=== PATIENT | female | born 1990 | race Two or more races ===

== ENCOUNTER 2025-02-05 09:22 | Day surgery (SDC) | payer OTHER ==
[2025-01-24 09:15] LABS: PH,URINE 5.5 (5.0-8.0); URINE APPEARANCE Clear; URINE BILIRRUBIN Negative (NEGATIVE); URINE BLOOD Negative; URINE COLOR Yellow; URINE GLUCOSE Negative (NEGATIVE); URINE KETONE Negative (NEGATIVE); URINE LEUKOCYTE Negative; URINE NITRATE Negative; URINE PROTEIN Negative (NEGATIVE); URINE UROBILINOGEN 0.2 E.U./dl
[2025-01-24 09:16] VITALS: BP 96/61
[2025-01-24 09:19] LABS: URINE EPITHELIAL CELLS 6.9 uL (0.0-38.8); URINE WBC 10.4 uL (0.0-23.2)
[2025-01-24 09:20] LABS: HEMATOCRIT 36.5 % (36.0-45.00); HEMOGLOBIN 12.7 g/dL (12.0-15.00); MEAN CELL VOLUME 94.3 fL (80.00-100.00); MEAN CORPUSCULAR HEMOGLOBIN 32.9 pg (27.00-32.0); MEAN CORPUSCULAR HGB CONC 34.9 g/dl (32.0-36.0); PLATELET COUNT 226 K/uL (150-450); RED BLOOD COUNT 3.87 M/uL (4.00-6.00); RED CELL DISTRIBUTION WIDTH 13.1 % (11.5-14.5)
[2025-01-24 09:51] LABS: URINE CAST 0.14 uL (0.0-1.40)
[2025-01-24 10:20] LABS: BILIRUBIN TOTAL 0.39 mg/dL (0.3-1.2); CALCIUM 9.5 mg/dL (8.5-10.1); CREATININE SERUM 0.68 mg/dL (0.55-1.02); GFR 99.04; GLOBULINA 3.7 G/DL (2.4-3.5); POTASSIUM 4.37 mEq/L (3.5-5.1); TOTAL PROTEIN 7.7 gm/dL (6.4-8.2)
[2025-01-24 10:47] LABS: PARTIAL THROMBOPLASTIN TIME 29.5 SECONDS (22.0-34.0); PROTHROMBIN TIME 10.9 SECONDS (9.0-11.5)
[~2025-02-05] VITALS: Ht 162.6 cm; Wt 84.8 kg
[2025-02-05] MEDS ORDERED: METRONIDAZOLE/SODIUM CHLORIDE 500 MG/100 ML PIGGYBACK IV ONE (11:15)
[2025-02-05] MEDS ORDERED: CEFAZOLIN SODIUM 1,000 MG VIAL ONE (11:15)
[2025-02-05] MEDS ORDERED: POVIDONE-IODINE 118 ML BOTT TOP ONE (11:21)
[2025-02-05] MEDS ORDERED: SUGAMMADEX SODIUM 200 MG/2 ML VIAL IV ONE (14:57)
[2025-02-05] MEDS ORDERED: HEMOSTATIC MATRIX WITH THROMBIN KIT TOP ONE (15:12)
[2025-02-05] MEDS ORDERED: SURGIFLO APPLICATOR 1 EACH APPL TOP ONE (15:12)
[2025-02-05] MEDS ORDERED: HEMOSTATIC MATRIX 1 KIT KIT TOP ONE (15:14)
[2025-03-15] MEDS ORDERED: PRENATABS RX T1 EACH PO (08:49)
[2025-03-15] MEDS ORDERED: FLEXERIL (08:51)
[2025-03-25] MEDS ORDERED: LIDOCAINE HCL 1%/EPINEPHRINE 20ML VIAL IJ ONE (07:08)
[2025-03-25] MEDS ORDERED: BUPIVACAINE HCL/MPF 0.5% 30ML VIAL ONE (07:08)
== END 2025-02-05 19:40 | disposition home or self-care (01) ==
LOC: CIR.AMB 09:22
PROVIDERS: ATTEND Student in an Organized Health Care Education/Training Program
DX: N80.03 Adenomyosis of the uterus (principal); N80.113 Superficial endometriosis of bilateral ovaries; N80.311 Superficial endometriosis of the anterior cul-de-sac; N80.321 Superficial endometriosis of the posterior cul-de-sac; N80.30 Endometriosis of pelvic peritoneum, unspecified; N80.33 Superficial endometriosis of the pelvic sidewall
CPT/HCPCS: 58662; 58558; S2900

== ENCOUNTER 2025-02-22 10:18 | Emergency (ER) | payer OTHER ==
[~2025-02-22] VITALS: Ht 162.6 cm; Wt 85.7 kg
[2025-02-22 12:03] LABS: BASO % 0.7 % (0.1-1.2); EOS # 0.61 (0.04-0.54); EOS % 8.7 % (0.7-7.0); HEMATOCRIT 34.9 % (34.1-44.9); HEMOGLOBIN 12.2 g/dL (11.2-15.7); LYMPH # 1.43 (1.18-3.74); LYMPH % 20.4 % (19.3-53.1); MEAN CORPUSCULAR HEMOGLOBIN 32.4 pg (25.6-32.2); MONO # 0.42 (0.24-0.82); NEUT # 4.47 (1.56-6.13); NEUT % 63.9 % (34.0-71.1); PLATELET COUNT 263 K/uL (163-369); RED BLOOD COUNT 3.76 M/uL (3.93-5.22); RED CELL DISTRIBUTION WIDTH 12.5 % (11.6-14.4)
[2025-02-22 13:05] LABS: CALCIUM 8.9 mg/dL (8.5-10.1); CREATININE SERUM 0.68 mg/dL (0.55-1.02); GFR 99.04; POTASSIUM 4.11 mEq/L (3.5-5.1)
[2025-02-22] MEDS ORDERED: KETOROLAC TROMETHAMINE 60 MG VIAL IM ONE (14:56)
[2025-02-22] MEDS ORDERED: KETOROLAC TROMETHAMINE 60 MG VIAL IM STA (14:58)
== END 2025-02-22 15:22 | disposition home or self-care (01) ==
LOC: ER 10:33
PROVIDERS: General Practice
DX: R10.9 Unspecified abdominal pain (principal); T88.9XXA Complication of surgical and medical care, unspecified, initial encounter; Z88.2 Allergy status to sulfonamides; Z88.8 Allergy status to other drugs, medicaments and biological substances

== ENCOUNTER 2025-03-25 05:31 | Day surgery (SDC) | payer OTHER ==
[2025-03-15 08:47] LABS: BASO % 0.7 % (0.1-1.2); EOS # 0.24 (0.04-0.54); EOS % 5.3 % (0.7-7.0); HEMATOCRIT 34.7 % (34.1-44.9); HEMOGLOBIN 11.7 g/dL (11.2-15.7); LYMPH # 1.04 (1.18-3.74); LYMPH % 23.1 % (19.3-53.1); MEAN CORPUSCULAR HEMOGLOBIN 31.6 pg (25.6-32.2); MONO # 0.32 (0.24-0.82); MONO % 7.1 % (4.7-12.5); NEUT # 2.87 (1.56-6.13); NEUT % 63.6 % (34.0-71.1); PLATELET COUNT 221 K/uL (163-369); RED CELL DISTRIBUTION WIDTH 12.4 % (11.6-14.4)
[2025-03-15 08:51] VITALS: BP 103/74
[2025-03-15 09:07] LABS: INR 1.01; PARTIAL THROMBOPLASTIN TIME 28.3 SECONDS (22.0-34.0)
[2025-03-15 09:52] LABS: PH,URINE 5.5 (5.0-8.0); URINE APPEARANCE Clear; URINE BILIRRUBIN Negative (NEGATIVE); URINE BLOOD Negative; URINE COLOR Yellow; URINE GLUCOSE Negative (NEGATIVE); URINE KETONE Negative (NEGATIVE); URINE LEUKOCYTE Negative; URINE NITRATE Negative; URINE PROTEIN Negative (NEGATIVE); URINE UROBILINOGEN 0.2 E.U./dl
[2025-03-15 09:58] LABS: URINE BACTERIA 291.1 uL (0.0-1933); URINE EPITHELIAL CELLS 4.2 uL (0.0-38.8); URINE RBC 3.5 uL (0.0-20.8)
[2025-03-15 10:03] LABS: URINE WBC 1.7 uL (0.0-23.2)
[2025-03-15 10:15] LABS: ALBUMIN 3.8 gm/dL (3.4-5.0); BILIRUBIN TOTAL 0.35 mg/dL (0.3-1.2); CALCIUM 9.5 mg/dL (8.5-10.1); CREATININE SERUM 0.61 mg/dL (0.55-1.02); GFR 112.27; GLOBULINA 3.5 G/DL (2.4-3.5); POTASSIUM 4.09 mEq/L (3.5-5.1); TOTAL PROTEIN 7.3 gm/dL (6.4-8.2)
[~2025-03-25] VITALS: Ht 162.6 cm; Wt 85.3 kg
[~2025-03-25 05:31] MED LIST: FLEXERIL; PRENATABS RX T1 EACH PO
[2025-03-25] MEDS ORDERED: CLINDAMYCIN PHOSPHATE 150 MG/ML (900mg) ONE (07:04)
[2025-03-25] MEDS ORDERED: MORPHINE SULFATE 4 MG/ML VIAL IV ONE ×2 (09:20→09:50)
== END 2025-03-25 12:05 | disposition home or self-care (01) ==
LOC: CIR.AMB 05:31
PROVIDERS: ATTEND Student in an Organized Health Care Education/Training Program
DX: K80.10 Calculus of gallbladder with chronic cholecystitis without obstruction (principal)